=== PATIENT | male | born 1950 | race Caucasian/White ===

== ENCOUNTER 2017-09-17 05:30 | Inpatient (IN) | payer BC ==
[2017-09-17] VITALS (31 sets, daily range): BP systolic 97–131; BP diastolic 49–72; PULSE 62–87; RESP 10–37; Ht 177.8 cm; Wt 81.8 kg
[~2017-09-17] VITALS: Ht 177.8 cm; Wt 81.8 kg
[2017-09-17] MEDS ORDERED: LACTATED RINGER'S 1,000 ML IV* ONE (06:30)
[2017-09-17] MEDS ORDERED: CEFAZOLIN 2 GM/50 ML (PMX) 50 ML IVPB ONE (06:30)
--- NOTE | 2017-09-17 06:57 | HPN ---
Date/Time of Note Date/Time of Note DATE: 09/17/17 TIME: 06:57 Interval H&P Admission Note Pt. seen H&P reviewed: No system changes RYAN VICTRO MD Sep 17, 2017 06:57
--- NOTE | 2017-09-17 06:57 | HPN ---
Date/Time of Note Date/Time of Note DATE: 09/17/17 TIME: 06:57 Interval H&P Admission Note Pt. seen H&P reviewed: No system changes RYAN VICTOR MD Sep 17, 2017 06:57
[2017-09-17] MEDS ORDERED: POLYMYXIN/BACITRACIN 1L IRRIG ONE (06:58)
[2017-09-17] MEDS ORDERED: GELATIN SIZE 100 SPONGE ONE (06:58)
[2017-09-17] MEDS ORDERED: THROMBIN 5000 UNIT VIAL ONE (06:58)
[2017-09-17] MEDS ORDERED: BUPIVACAINE 0.25% (MPF) 30 ML INJ ONE (06:58)
[2017-09-17] MEDS ORDERED: ROCURONIUM 50 MG INJ ONE (07:00)
[2017-09-17] MEDS ORDERED: CEFAZOLIN 1 GM INJ ONE (07:00)
[2017-09-17] MEDS ORDERED: FENTAnyl 50 MCG/ML VIAL ONE (07:05)
[2017-09-17] MEDS ORDERED: LIDOCAINE 2% (SDV) 5 ML INJ ONE (07:05)
[2017-09-17] MEDS ORDERED: SUCCINYLCHOLINE CHLORIDE 100 MG/5 ML SYG IV ONE (07:05)
[2017-09-17] MEDS ORDERED: PROPOFOL 20 ML ONE (07:05)
[2017-09-17] MEDS ORDERED: MIDAZOLAM 1 MG/ML 2 ML INJ ONE (07:06)
[2017-09-17] MEDS ORDERED: EPHEDrine SULFATE 50 MG/5 ML SYG ONE (07:08)
[2017-09-17] MEDS ORDERED: PHENYLephrine (100 MCG/ML) 5ML SYG ONE (07:08)
[2017-09-17] MEDS ORDERED: DRON400T2 PO (07:11)
[2017-09-17] MEDS ORDERED: MET25 PO (07:11)
[2017-09-17] MEDS ORDERED: PRED1TAB2 PO (07:11)
[2017-09-17] MEDS ORDERED: LISI10TA2 PO (07:11)
[2017-09-17] MEDS ORDERED: TRAM-40 PO (07:11)
[2017-09-17] MEDS ORDERED: OMEP10CA4 PO (07:11)
[2017-09-17] MEDS ORDERED: FOLIC (07:11)
[2017-09-17] MEDS ORDERED: RIVA20TA PO (07:11)
[2017-09-17] MEDS ORDERED: ROSU5TAB5 PO (07:11)
[2017-09-17] MEDS ORDERED: OCULAR LUBRICANT 3.5 GM OPH OINT ONE (07:18)
[2017-09-17] MEDS ORDERED: DEXAMETHASONE 4 MG/ML 1 ML INJ ONE (07:44)
[2017-09-17] MEDS ORDERED: METOCLOPRAMIDE 10 MG INJ ONE (07:44)
[2017-09-17] MEDS ORDERED: ONDANSETRON 4 MG INJ ONE (07:44)
[2017-09-17] MEDS ORDERED: HYDROmorphONE 2 MG/ML SYG ONE (08:27)
[2017-09-17] MEDS ORDERED: SUGAMMADEX SODIUM 200 MG/2 ML VIAL IV ONE (08:30)
[2017-09-17] MEDS ORDERED: EPHEDrine SULFATE 50 MG/5 ML SYG IV PRN (08:30)
[2017-09-17] MEDS ORDERED: LABETALOL HCL 20MG INJ IV PRN (08:30)
[2017-09-17] MEDS ORDERED: hydrALAzine 20 MG INJ IV PRN (08:30)
[2017-09-17] MEDS ORDERED: PROCHLORPERAZINE 10 MG INJ IV PRN (08:30)
[2017-09-17] MEDS ORDERED: MEPERIDINE 25 MG INJ IV PRN (08:30)
[2017-09-17] MEDS ORDERED: HYDROmorphONE (0.2 MG/ML) 10ML SYG IV PRN ×2 (08:30)
[2017-09-17] MEDS ORDERED: FENTAnyl 50 MCG/ML VIAL IV PRN (08:30)
[2017-09-17] MEDS ORDERED: ONDANSETRON 4 MG INJ IV PRN ×2 (08:30→09:30)
[2017-09-17] MEDS ORDERED: DIPHENHYDRAMINE 50 MG INJ IV PRN (08:30)
[2017-09-17] MEDS ORDERED: oxyCODONE 5 MG TAB PO PRN (08:30)
[2017-09-17] MEDS ORDERED: ACETAMINOPHEN 1000MG/100ML IV 100 ML ONE (08:30)
[2017-09-17] MEDS ORDERED: PROCHLORPERAZINE 10 MG TAB PO PRN (09:30)
[2017-09-17] MEDS ORDERED: DIAZEPAM 5 MG TAB PO PRN (09:30)
[2017-09-17] MEDS ORDERED: AL HYDROX/MG HYDROX/SIMETH 30 ML CUP PO PRN (09:30)
[2017-09-17] MEDS ORDERED: NALOXONE (0.4 MG/ML) INJ IV PRN (09:30)
[2017-09-17] MEDS ORDERED: ZOLPIDEM 5 MG TAB PO PRN (09:30)
[2017-09-17] MEDS ORDERED: TRIMETHOBENZAMIDE 100 MG/ML VIAL IM PRN (09:30)
[2017-09-17] MEDS ORDERED: ACETAMINOPHEN 325 MG TAB PO PRN (09:30)
[2017-09-17] MEDS ORDERED: DIPHENHYDRAMINE 50 MG CAP PO PRN (09:30)
[2017-09-17] MEDS ORDERED: HYDROmorphONE 0.2 MG/ML PCA IV SCH (09:30)
[2017-09-17] MEDS ORDERED: BETHANECHOL 25 MG TAB PO PRN (09:30)
[2017-09-17] MEDS ORDERED: HYDROCODONE/APAP (5/325) TAB PO PRN (09:30)
[2017-09-17] MEDS ORDERED: DIAZEPAM 5 MG/ML SYG IM PRN (09:30)
[2017-09-17] MEDS ORDERED: NACL 0.9% 3 ML SYG IV SCH (09:30)
[2017-09-17] MEDS ORDERED: HYDROmorphONE 0.2 MG/ML PCA ONE (09:41)
--- NOTE | 2017-09-17 10:34 | OPR ---
DATE OF OPERATION: 09/17/2017 PREOPERATIVE DIAGNOSIS: Severe spinal stenosis at L4-L5. POSTOPERATIVE DIAGNOSIS: Severe spinal stenosis at L4-L5. OPERATION PERFORMED: 1. Central decompressive laminectomy at L4. 2. Partial central decompression laminectomy at L5 (superiorly). 3. Medial facetectomy and foraminotomy, L4-L5 bilaterally. 4. Cosmetic wound closure (5 cm). 5. Lateral localized lumbar radiographs (2). 6. Intraoperative nerve monitoring (90 minutes). SURGEON: Rich Mcdaniel MD ELECTRICAL MAINTENANCE MECHANIC: Gabrielle Conti PA-C ANESTHESIA: General endotracheal. ANESTHESIOLOGIST: Dr. Cam ESTIMATED BLOOD LOSS: 50 mL, none replaced. DRAINS: Two medium Hemovac drains employed. COMPLICATIONS: None. PERTINENT HISTORY AND PHYSICAL: This is a 67-year-old male with severe back and lower extremity com plaints, right greater than left, which have been unrelieved by conservative management. He has und ergone a number of diagnostic studies including an MRI of the lumbar spine, which demonstrated a sev ere stenosis at L4-L5 secondary to degenerative spondylolisthesis at that level and marked facet bebo nt hypertrophy. Treatment options were discussed with the patient, who elected to proceed with surg glenna. OPERATIVE FINDINGS AT SURGERY: Severe stenosis at L4 was confirmed. The baseline intraoperative ne rve monitoring revealed a decrease in the right L3 potential of 30%, the right L4 potential of 50%. These all returned to normal at the completion of surgery. OPERATIVE PROCEDURE: With the patient in supine position after satisfactory induction of general en dotracheal anesthesia by Dr. Cam, the patient was turned to the prone kneeling position on the [facility] frame. All pressure points were carefully padded. The back was prepped and draped in usual st erile fashion. Athrombic pumps were applied to the legs below the knees to prevent venous stasis du ring and after the procedure. An indwelling Barba catheter was also placed preoperatively to facili nelson bladder drainage during and after the procedure. Two spinal needles were placed next to what w as felt to be the L4 and L5 spinous processes, lateral roentgenogram was taken which confirmed anato laurel localization. A 5 cm incision then carried out midline over the spinous process of L4 after skin was infiltrated w ith 0.25% Marcaine without epinephrine for postoperative analgesia. Superficial retractors were wade debi and hemostasis secured with electrocautery. Throughout the procedure, copious amounts of antiba cterial irrigating solution were used to periodically irrigate the wound. The fascia was incised in midline with a hot knife and a bilateral subperiosteal dissection carried out at L4-L5. Deep retra ctors were placed and deep hemostasis secured with electrocautery. A second intraoperative radiogra ph was taken with [place] clamps placed in what was felt to be the spinous process of L4. This was c onfirmed with second x-ray. A central decompressive laminectomy at L4 was then carried out using a Angela right-angle bone jimenez eur, Leksell rongeur, Kerrison punches and curettes. Ligamentum flavum was incised with sharp disse ction. The operating microscope was moved into place. A medial facetectomy and foraminotomy was ac complished using small hand osteotome, mallet, Kerrison punches and curettes. The dural sac and exi ting L5 nerve were still compressed distally, and the superior 20% of the lamina of L5 and the adjac ent facet joints were removed to facilitate adequate decompression of the dural sac and the exiting L5 nerve roots. The anesthesiologist was asked to perform a Valsalva maneuver at 40 mmHg and no spi nal fluid leak was noted. The wound was then closed in layers over 2 medium Hemovac drains, one below the fascia and one above the fascia using #1 Stratafix sutures on the deep paralumbar musculature and deep fascia of back, 2 -0 Stratafix sutures in subcu tissue, and a 4-0 Vicryl subcuticular cosmetic closing suture on the s kin. Dermabond and sterile compressive dressings were applied. Patient having tolerated procedure well, was then turned to the supine position onto his bed and extubated by Dr. Cam. He was transpo rted to recovery room in satisfactory condition. At the conclusion of the procedure, sponge, instru ment, and needle counts were all correct. NEED FOR BENDING MACHINE OPERATOR: During this spinal surgical procedure, my marketing assistant retail division was used to retrac t and protect the spinal nerves and dural sac. My marketing assistant retail division also employed the suction catheters to e vacuate blood from the surgical field to improve visualization of the neural structures. The assista nt was medically necessary to facilitate the completion of the surgery in a safe and expeditious man ner. State of [place] regulations, as well as hospital bylaws, preclude the use of non-licensed [facility] care personnel such as operating room technicians, to perform these functions. Throughout the procedure, neural monitoring was carried out by [employer] including EMG, SSEP and MEP monitoring of the L3, L4, L5 and S1 nerve roots bilaterally along with s lilliam cord potentials. These were interpreted by a neurologist employed by [employer]. Dictated By: RICH MCDANIEL MD TM/NTS Conf#: [id number] DID#: [id number] CC: DESHAWN PATEL MD;*EndCC*
--- NOTE | 2017-09-17 10:34 | OPR ---
DATE OF OPERATION: 09/17/2017 PREOPERATIVE DIAGNOSIS: Severe spinal stenosis at L4-L5. POSTOPERATIVE DIAGNOSIS: Severe spinal stenosis at L4-L5. OPERATION PERFORMED: 1. Central decompressive laminectomy at L4. 2. Partial central decompression laminectomy at L5 (superiorly). 3. Medial facetectomy and foraminotomy, L4-L5 bilaterally. 4. Cosmetic wound closure (5 cm). 5. Lateral localized lumbar radiographs (2). 6. Intraoperative nerve monitoring (90 minutes). SURGEON: Rich Mcdaniel MD MEDICINAL PLANT PICKER: Gabrielle Conti PA-C ANESTHESIA: General endotracheal. ANESTHESIOLOGIST: Dr. Cam ESTIMATED BLOOD LOSS: 50 mL, none replaced. DRAINS: Two medium Hemovac drains employed. COMPLICATIONS: None. PERTINENT HISTORY AND PHYSICAL: This is a 67-year-old male with severe back and lower extremity com plaints, right greater than left, which have been unrelieved by conservative management. He has und ergone a number of diagnostic studies including an MRI of the lumbar spine, which demonstrated a sev ere stenosis at L4-L5 secondary to degenerative spondylolisthesis at that level and marked facet bebo nt hypertrophy. Treatment options were discussed with the patient, who elected to proceed with surg glenna. OPERATIVE FINDINGS AT SURGERY: Severe stenosis at L4 was confirmed. The baseline intraoperative ne rve monitoring revealed a decrease in the right L3 potential of 30%, the right L4 potential of 50%. These all returned to normal at the completion of surgery. OPERATIVE PROCEDURE: With the patient in supine position after satisfactory induction of general en dotracheal anesthesia by Dr. Cam, the patient was turned to the prone kneeling position on the [facility] frame. All pressure points were carefully padded. The back was prepped and draped in usual st erile fashion. Athrombic pumps were applied to the legs below the knees to prevent venous stasis du ring and after the procedure. An indwelling Barba catheter was also placed preoperatively to facili nelson bladder drainage during and after the procedure. Two spinal needles were placed next to what w as felt to be the L4 and L5 spinous processes, lateral roentgenogram was taken which confirmed anato laurel localization. A 5 cm incision then carried out midline over the spinous process of L4 after skin was infiltrated w ith 0.25% Marcaine without epinephrine for postoperative analgesia. Superficial retractors were wade debi and hemostasis secured with electrocautery. Throughout the procedure, copious amounts of antiba cterial irrigating solution were used to periodically irrigate the wound. The fascia was incised in midline with a hot knife and a bilateral subperiosteal dissection carried out at L4-L5. Deep retra ctors were placed and deep hemostasis secured with electrocautery. A second intraoperative radiogra ph was taken with [place] clamps placed in what was felt to be the spinous process of L4. This was c onfirmed with second x-ray. A central decompressive laminectomy at L4 was then carried out using a Angela right-angle bone jimenez eur, Leksell rongeur, Kerrison punches and curettes. Ligamentum flavum was incised with sharp disse ction. The operating microscope was moved into place. A medial facetectomy and foraminotomy was ac complished using small hand osteotome, mallet, Kerrison punches and curettes. The dural sac and exi ting L5 nerve were still compressed distally, and the superior 20% of the lamina of L5 and the adjac ent facet joints were removed to facilitate adequate decompression of the dural sac and the exiting L5 nerve roots. The anesthesiologist was asked to perform a Valsalva maneuver at 40 mmHg and no spi nal fluid leak was noted. The wound was then closed in layers over 2 medium Hemovac drains, one below the fascia and one above the fascia using #1 Stratafix sutures on the deep paralumbar musculature and deep fascia of back, 2 -0 Stratafix sutures in subcu tissue, and a 4-0 Vicryl subcuticular cosmetic closing suture on the s kin. Dermabond and sterile compressive dressings were applied. Patient having tolerated procedure well, was then turned to the supine position onto his bed and extubated by Dr. Cam. He was transpo rted to recovery room in satisfactory condition. At the conclusion of the procedure, sponge, instru ment, and needle counts were all correct. NEED FOR DIGITAL FIELD SERVICE TECHNICIAN: During this spinal surgical procedure, my public services assistant was used to retrac t and protect the spinal nerves and dural sac. My public services assistant also employed the suction catheters to e vacuate blood from the surgical field to improve visualization of the neural structures. The assista nt was medically necessary to facilitate the completion of the surgery in a safe and expeditious man ner. State of [place] regulations, as well as hospital bylaws, preclude the use of non-licensed [facility] care personnel such as operating room technicians, to perform these functions. Throughout the procedure, neural monitoring was carried out by [employer] including EMG, SSEP and MEP monitoring of the L3, L4, L5 and S1 nerve roots bilaterally along with s lilliam cord potentials. These were interpreted by a neurologist employed by [employer]. Dictated By: RICH MCDANIEL MD TM/NTS Conf#: [id number] DID#: [id number] CC: DESHAWN PATEL MD;*EndCC*
--- NOTE | 2017-09-17 10:34 | OPR ---
DATE OF OPERATION: 09/17/2017 PREOPERATIVE DIAGNOSIS: Severe spinal stenosis at L4-L5. POSTOPERATIVE DIAGNOSIS: Severe spinal stenosis at L4-L5. OPERATION PERFORMED: 1. Central decompressive laminectomy at L4. 2. Partial central decompression laminectomy at L5 (superiorly). 3. Medial facetectomy and foraminotomy, L4-L5 bilaterally. 4. Cosmetic wound closure (5 cm). 5. Lateral localized lumbar radiographs (2). 6. Intraoperative nerve monitoring (90 minutes). SURGEON: Rich Mcdaniel MD WINDOW GLAZIER: Gabrielle Conti PA-C ANESTHESIA: General endotracheal. ANESTHESIOLOGIST: Dr. Cam ESTIMATED BLOOD LOSS: 50 mL, none replaced. DRAINS: Two medium Hemovac drains employed. COMPLICATIONS: None. PERTINENT HISTORY AND PHYSICAL: This is a 67-year-old male with severe back and lower extremity com plaints, right greater than left, which have been unrelieved by conservative management. He has und ergone a number of diagnostic studies including an MRI of the lumbar spine, which demonstrated a sev ere stenosis at L4-L5 secondary to degenerative spondylolisthesis at that level and marked facet bebo nt hypertrophy. Treatment options were discussed with the patient, who elected to proceed with surg glenna. OPERATIVE FINDINGS AT SURGERY: Severe stenosis at L4 was confirmed. The baseline intraoperative ne rve monitoring revealed a decrease in the right L3 potential of 30%, the right L4 potential of 50%. These all returned to normal at the completion of surgery. OPERATIVE PROCEDURE: With the patient in supine position after satisfactory induction of general en dotracheal anesthesia by Dr. Cam, the patient was turned to the prone kneeling position on the [facility] frame. All pressure points were carefully padded. The back was prepped and draped in usual st erile fashion. Athrombic pumps were applied to the legs below the knees to prevent venous stasis du ring and after the procedure. An indwelling Barba catheter was also placed preoperatively to facili nelson bladder drainage during and after the procedure. Two spinal needles were placed next to what w as felt to be the L4 and L5 spinous processes, lateral roentgenogram was taken which confirmed anato laurel localization. A 5 cm incision then carried out midline over the spinous process of L4 after skin was infiltrated w ith 0.25% Marcaine without epinephrine for postoperative analgesia. Superficial retractors were wade debi and hemostasis secured with electrocautery. Throughout the procedure, copious amounts of antiba cterial irrigating solution were used to periodically irrigate the wound. The fascia was incised in midline with a hot knife and a bilateral subperiosteal dissection carried out at L4-L5. Deep retra ctors were placed and deep hemostasis secured with electrocautery. A second intraoperative radiogra ph was taken with [place] clamps placed in what was felt to be the spinous process of L4. This was c onfirmed with second x-ray. A central decompressive laminectomy at L4 was then carried out using a Angela right-angle bone jimenez eur, Leksell rongeur, Kerrison punches and curettes. Ligamentum flavum was incised with sharp disse ction. The operating microscope was moved into place. A medial facetectomy and foraminotomy was ac complished using small hand osteotome, mallet, Kerrison punches and curettes. The dural sac and exi ting L5 nerve were still compressed distally, and the superior 20% of the lamina of L5 and the adjac ent facet joints were removed to facilitate adequate decompression of the dural sac and the exiting L5 nerve roots. The anesthesiologist was asked to perform a Valsalva maneuver at 40 mmHg and no spi nal fluid leak was noted. The wound was then closed in layers over 2 medium Hemovac drains, one below the fascia and one above the fascia using #1 Stratafix sutures on the deep paralumbar musculature and deep fascia of back, 2 -0 Stratafix sutures in subcu tissue, and a 4-0 Vicryl subcuticular cosmetic closing suture on the s kin. Dermabond and sterile compressive dressings were applied. Patient having tolerated procedure well, was then turned to the supine position onto his bed and extubated by Dr. Cam. He was transpo rted to recovery room in satisfactory condition. At the conclusion of the procedure, sponge, instru ment, and needle counts were all correct. NEED FOR DULL COAT MILL OPERATOR: During this spinal surgical procedure, my assistant passenger locomotive engineer was used to retrac t and protect the spinal nerves and dural sac. My assistant passenger locomotive engineer also employed the suction catheters to e vacuate blood from the surgical field to improve visualization of the neural structures. The assista nt was medically necessary to facilitate the completion of the surgery in a safe and expeditious man ner. State of [place] regulations, as well as hospital bylaws, preclude the use of non-licensed [facility] care personnel such as operating room technicians, to perform these functions. Throughout the procedure, neural monitoring was carried out by [employer] including EMG, SSEP and MEP monitoring of the L3, L4, L5 and S1 nerve roots bilaterally along with s lilliam cord potentials. These were interpreted by a neurologist employed by [employer]. Dictated By: RICH MCDANIEL MD TM/NTS Conf#: [id number] DID#: [id number] CC: DESHAWN PATEL MD;*EndCC*
--- NOTE | 2017-09-17 10:53 | RADRPT ---
PROCEDURE: Intraoperative XR. CLINICAL INDICATION: Intraoperative radiograph during lumbar spine surgery. TECHNIQUE: Spot intraoperative lateral lumbar x-ray image was provided. The images were reviewed on a high-resolution PACS workstation. COMPARISON: None available FINDINGS: Spot intraoperative lateral all lumbar view were provided during lumbar spine surgery. The images d emonstrate metallic probes at the L3 and L3-4 levels. There is 5 mm of anterolisthesis of L4 on L5. IMPRESSION: 1. Spot intraoperative lateral lumbar view during lumbar spine surgery were provided. 2. Please see operative report of the same day for further information. RPTAT: HGAS .Geronimo Donohue MD, MD Date Time Electronically viewed and signed by .Geronimo Donohue MD, on 09/17/2017 10:53 .S/
--- NOTE | 2017-09-17 10:54 | RADRPT ---
PROCEDURE: Intraoperative XR. CLINICAL INDICATION: Intraoperative radiograph during lumbar spine surgery. TECHNIQUE: Spot intraoperative lateral lumbar x-ray image was provided. The images were reviewed on a high-resolution PACS workstation. COMPARISON: 09/17/2017 FINDINGS: Spot intraoperative lateral lumbar view were provided during lumbar spine surgery. The images demon strate metallic instrumentation at the L4-5 level. There is 5 mm of anterolisthesis of L4 on L5. IMPRESSION: 1. Spot intraoperative lateral lumbar view during lumbar spine surgery were provided. 2. Please see operative report of the same day for further information. RPTAT: HGAS .Geronimo Donohue MD, MD Date Time Electronically viewed and signed by .Geronimo Donohue MD, on 09/17/2017 10:53 .S/
[2017-09-17] MEDS: CEFAZOLIN 1 GM/50 ML (PMX) 50 ML IVPB SCH ×3 (12:01→23:01)
[2017-09-17] MEDS: DEXTROSE 5%-0.45% NACL 1,000 ML IV SCH ×2 (12:01→21:12)
[2017-09-17] MEDS: CEPASTAT LOZENGE MT PRN ×2 (12:59→19:14)
--- NOTE | 2017-09-17 18:12 | CONS ---
Date/Time of Note Date/Time of Note DATE: 09/17/17 TIME: 18:00 Assessment/Plan Assessment/Plan Problems: (1) Aftercare following surgery of the musculoskeletal system Status: Acute Comment: Doing well on postop day #0. Pain controlled. Patient to start with physical therapy tomorrow. Will follow and evaluate for any medical issues should they arise. (2) Spinal stenosis of lumbar region with radiculopathy Status: Resolved Comment: Per primary team (3) Rheumatoid arthritis Status: Chronic Comment: Continue prednisone. Continue methotrexate. (4) Atherosclerotic heart disease of [place] coronary artery without angina pectoris Status: Chronic Comment: Patient is status post coronary bypass grafting. Will monitor. (5) Atrial fibrillation Status: Chronic Comment: Patient to continue on Multitaq. Xarelto to be held until 5 days postoperatively. (6) Gastro-esophageal reflux disease without esophagitis Status: Chronic Comment: Change PPI from omeprazole to pantoprazole for formulary reasons (7) Essential (primary) hypertension Status: Chronic Comment: Continue lisinopril (8) Hyperlipidemia Status: Chronic Comment: Patient does not want to be on atorvastatin. Okay to continue his home dose of Crestor. Consultation Date/Type/Reason Admit Date/Time Sep 17, 2017 at 05:30 Date of Consultation: Sep 17, 2017 Type of Consultation: Medicine Reason for Consultation Medical management Referring Provider: RYAN VICTOR MD Hx of Present Illness 67-year-old male with a history of rheumatoid arthritis, hypertension, hyperlipidemia, coronary artery disease, gastroesophageal reflux disease, atrial fibrillation who presented with severe back and lower extremity complaints, right greater than left, which have been unrelieved by conservative management. He has undergone a number of diagnostic studies including an MRI of the lumbar spine, which demonstrated a severe stenosis at L4-L5 secondary to degenerative spondylolisthesis at that level and marked facet joint hypertrophy. Treatment options were discussed with the patient, who elected to proceed with surgery. Now status post lumbar laminectomy at L4-L5. Postop day #0. "Feels like 1 million bucks" Constitutional: improved, no complaints Eyes: no complaints ENT: no complaints Respiratory: no complaints Cardiovascular: no complaints Gastrointestinal: no complaints Genitourinary: no complaints Musculoskeletal: no complaints Neurologic: no complaints (Marked improvement in lower extremity sensation) Past Medical History Medical History: coronary artery disease, GERD, high cholesterol, hypertension , other (Rheumatoid arthritis, atrial fibrillation) Past Surgical History Past Surgical Hx: coronary bypass surgery, other (Bilateral hernia surgery, left knee meniscus repair, reentry pathway ablation) Family History Significant Family History: heart disease (Mother's family), hypertension ( Mother) Social History Born [place], in [facility] for 50 years, 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 [employer], , 3 children, one Alcohol Use: sober (Formerly heavy drinker, sober for 18 years) Smoking Status: Former smoker (1 pack per day for 25 years, quit 25 years ago) Drug Use: none Exam/Review of Systems Vital Signs Vitals VS - Last 72 Hours, by Label Date Time Temp Pulse Resp B/P Pulse Ox O2 Delivery O2 Flow Rate FiO2 09/17/17 17:00 78 13 117/68 99 Room Air Mechanical Ventilator 09/17/17 16:00 74 09/17/17 16:00 98.1 78 12 120/62 98 Room Air Mechanical Ventilator 09/17/17 15:00 78 21 106/58 100 Room Air 09/17/17 14:00 81 15 108/63 98 Room Air 09/17/17 13:00 87 16 97/51 98 Room Air 09/17/17 12:30 84 17 117/63 99 Room Air 09/17/17 12:15 80 21 125/71 98 Room Air 09/17/17 12:00 76 15 125/67 99 Room Air 09/17/17 12:00 76 09/17/17 11:30 78 22 120/64 98 Room Air 09/17/17 11:15 75 15 119/57 100 Room Air 09/17/17 11:00 97.6 72 17 119/54 92 Room Air 09/17/17 10:49 69 09/17/17 10:20 70 25 128/54 98 Room Air 09/17/17 10:10 64 21 116/58 100 Room Air 09/17/17 10:00 68 37 121/52 100 Room Air 09/17/17 09:55 66 16 123/62 100 Room Air 09/17/17 09:50 62 24 118/59 100 Room Air 09/17/17 09:45 62 20 126/53 100 Room Air 09/17/17 09:34 66 20 114/52 100 Room Air 09/17/17 09:29 66 17 113/59 100 Room Air 09/17/17 09:24 66 10 107/57 100 Room Air 09/17/17 09:19 70 12 102/49 100 Room Air 09/17/17 09:18 97.8 09/17/17 09:14 70 19 125/55 100 Nasal Cannula 2.0 09/17/17 09:09 97.8 72 18 116/54 100 Mask 8.0 09/17/17 06:24 98.1 65 18 113/63 99 Room Air Vital Signs Date Time Temp Pulse Resp B/P Pulse Ox O2 Delivery O2 Flow Rate FiO2 09/17/17 17:00 78 13 117/68 99 Room Air Mechanical Ventilator 09/17/17 16:00 98.1 09/17/17 09:14 2.0 Exam Constitutional: alert, oriented, well developed Psych: nl mood/affect, no complaints Eyes: EOMI, PERRL, nl conjunctiva, nl lids, nl sclera ENMT: mucosa pink and moist, nl external ears & nose Neck: non-tender, supple, No bruits, No masses, No thyromegaly Respiratory: clear to auscultation, normal air movement Cardiovascular: nl pulses, regular rate and rhythm, No edema, No murmurs/extra sounds, No rub Gastrointestinal: bowel sounds, nl liver, spleen, non-tender, soft, No mass, No rebound or guarding Musculoskeletal: nl extremities to inspection Extremities: normal pulses Neurological: LINEN ROOM SUPERVISOR II-XII intact, nl mental status, nl speech, nl strength Results Results 24 hrs Laboratory Tests Test 09/17/17 05:34 Prothrombin Time 12.8 Prothrombin Time Ratio 1.0 INR International Normalized Ratio 0.96 Activated Partial Thromboplast Time 25.8 Medications Medications Current Medications Lactated Ringer's 1,000 ml @ 20 mls/hr Q24H ONCE IV* Last administered on 06:50; Admin Dose 20 MLS/HR; Start 09/17/17 at 06:30; Stop 09/18/17 at 06:29 Dextrose/Sodium Chloride (D5-1/2ns) 1,000 ml @ 100 mls/hr Q10H IV Last administered on 09/17/17 12:01; Admin Dose 100 MLS/HR; Start 09/17/17 at 09: 28 Acetaminophen/ Hydrocodone Bitart ([place] (5/325)) 1 tab Q4H PRN PO PAIN LEVEL 1 -5; Start 09/17/17 at 09:30; Status Future Hold Acetaminophen/ Hydrocodone Bitart 2 tab 2 tab Q4H PRN PO PAIN LEVEL 6-10; Start 09/17/17 at 09:30; Status Future Hold Cefazolin Sodium (Ancef 1 Gm/50 ml (Pmx)) 50 ml @ 100 mls/hr Q6 IVPB Last administered on 09/17/17t 17:11; Admin Dose 100 MLS/HR; Start 09/17/17 at 12: 00; Stop 09/18/17 at 06:29 Zolpidem Tartrate (Ambien) 5 mg HS PRN PO INSOMNIA; Start 09/17/17 at 09:30 Prochlorperazine (Compazine) 10 mg Q4H PRN PO NAUSEA AND/OR VOMITING; Start at 09:30 Trimethobenzamide HCl (Tigan) 200 mg Q4H PRN IM NAUSEA AND/OR VOMITING; Start 09/17/17 at 09:30 Ondansetron HCl (Zofran Inj) 4 mg Q6H PRN IV NAUSEA AND/OR VOMITING; Start at 09:30 Al Hydrox/Mg Hydrox/Simethicone (Mag-Al Plus) 15 ml Q4H PRN PO CONSTIPATION; Start 09/17/17 at 09:30 Docusate Sodium (Colace) 100 mg BID PO ; Start 09/18/17 at 09:00 Acetaminophen (Tylenol Tab) 650 mg Q4H PRN PO TEMP GREATER THAN 101F OR SALGUERO; Start 09/17/17 at 09:30 Ascorbic Acid (Vitamin C) 1,000 mg BID PO ; Start 09/18/17 at 09:00 Ferrous Sulfate (Ferrous Sulfate (Ec)) 325 mg TID PO ; Start 09/18/17 at 09:00 Ranitidine HCl (Zantac) 150 mg BID PO ; Start 09/17/17 at 21:00 Diazepam (Valium) 5 mg Q4H PRN PO MUSCLE SPASMS; Start 09/17/17 at 09:30 Diazepam (Valium) 5 mg Q4H PRN IM MUSCLE SPASMS; Start 09/17/17 at 09:30 Phenol (Cepastat Lozenge) 1 lozenge PRN PRN MT SORE THROAT Last administered on 09/17/17t 12:59; Admin Dose 1 LOZENGE; Start 09/17/17 at 09:30 Bethanechol Chloride (Urecholine) 25 mg PRN PRN PO UNABLE TO VOID; Start 09/17 at 09:30 Diphenhydramine HCl (Benadryl) 50 mg Q6H PRN PO PRURITUS; Start 09/17/17 at 09 :30 Hydromorphone HCl (Dilaudid CONSUMER SALES REPRESENTATIVE) Q4PCA IV ; Start 09/17/17 at 09:30 Naloxone HCl (Narcan) 0.2 mg Q2M PRN IV RR 8 BREATHS/MIN OR LESS; Start at 09:30 Dronedarone (Multaq) 400 mg BID PO ; Start 09/17/17 at 21:00 Lisinopril (Zestril) 10 mg DAILY PO ; Start 09/18/17 at 09:00 Methotrexate (Methotrexate) 15 mg Love@09 PO ; Start 09/23/17 at 09:00 Prednisone (Prednisone) 2 mg DAILY PO ; Start 09/18/17 at 09:00 Pantoprazole (Protonix Tab) 40 mg DAILY@06 PO ; Start 09/18/17 at 06:00 Atorvastatin Calcium (Lipitor) 10 mg HS PO ; Start 09/17/17 at 21:00 DESHAWN PATEL MD Sep 17, 2017 18:12
[2017-09-17] MEDS ORDERED: ATORVASTATIN 10 MG TAB PO SCH (21:00)
[2017-09-17] MEDS: RANITIDINE 150 MG TAB PO SCH (21:12)
[2017-09-17] MEDS: DRONEDARONE HYDROCHLORIDE 400 MG TAB PO SCH (21:12)
[2017-09-18] VITALS (13 sets, daily range): BP systolic 95–137; BP diastolic 50–81; PULSE 68–85; RESP 13–19
[2017-09-18] MEDS ORDERED: PANTOPRAZOLE (EC) 40 MG TAB PO SCH (06:00)
[2017-09-18] MEDS ORDERED: HYDROCODONE/APAP (5/325) TAB ONE (06:23)
[2017-09-18] MEDS: CEFAZOLIN 1 GM/50 ML (PMX) 50 ML IVPB SCH (06:25)
[2017-09-18] MEDS: DEXTROSE 5%-0.45% NACL 1,000 ML IV SCH (06:25)
[2017-09-18] MEDS: HYDROCODONE/APAP (5/325) TAB PO PRN ×2 (06:33→10:46)
--- NOTE | 2017-09-18 07:06 | PN ---
Date/Time of Note Date/Time of Note DATE: 09/18/17 TIME: 07:04 Assessment/Plan Lines/Catheters IV Catheter Type (from Nrs): Peripheral IV Barba in Place (from Nrs): Yes Subjective 24 Hr Interval Summary The patient is postop day #1 following a decompressive laminectomy at L4 and the upper part of L5. He is resting comfortably in bed. Neurovascular structures are intact distally. His a.m. labs are unremarkable. He had 100 cc in his Hemovac at 7 PM last night and 60 cc since that time. He has a Barba catheter in place. I will order his Barba to be discontinued, and he can be transferred to the orthopedic floor if cleared by internal medicine. He will be mobilized as tolerated by physical therapy until he is independent with ambulation. He may be able to go home later today if cleared by physical therapy. Exam/Review of Systems Vital Signs Vitals Vital Signs Date Time Temp Pulse Resp B/P Pulse Ox O2 Delivery O2 Flow Rate FiO2 09/18/17 06:00 68 18 101/54 98 Room Air 09/18/17 04:00 97.7 09/17/17 09:14 2.0 Intake and Output 09/17/17 09/17/17 09/18/17 15:00 23:00 07:00 Intake Total 2030 ml 1440 ml 870 ml Output Total 1600 ml 1125 ml 1210 ml Balance 430 ml 315 ml -340 ml Results Result Diagram: 09/18/17 0441 09/18/17 0441 RYAN VICTOR MD Sep 18, 2017 07:06
[2017-09-18] MEDS ORDERED: BETHANECHOL 25 MG TAB PO PRN (08:00)
[2017-09-18] MEDS: RANITIDINE 150 MG TAB PO SCH (08:14)
[2017-09-18] MEDS: FERROUS SULFATE (EC) 325 MG TAB PO SCH ×2 (08:14→14:01)
[2017-09-18] MEDS: DRONEDARONE HYDROCHLORIDE 400 MG TAB PO SCH (08:15)
[2017-09-18] MEDS ORDERED: SPECIAL NON-STANDARD MEDICATION PO SCH (09:00)
[2017-09-18] MEDS ORDERED: predniSONE 1 MG TAB PO SCH (09:00)
[2017-09-18] MEDS ORDERED: DOCUSATE SODIUM 100 MG CAP PO SCH (09:00)
[2017-09-18] MEDS ORDERED: ASCORBIC ACID 500 MG TAB PO SCH (09:00)
[2017-09-18] MEDS ORDERED: LISINOPRIL 10 MG TAB PO SCH (09:00)
[2017-09-18] MEDS ORDERED: RIVAROXABAN 20 MG TABLET PO SCH (17:35)
[2017-09-23] MEDS ORDERED: METHOTREXATE 2.5 MG TAB PO SCH (09:00)
--- NOTE | 2017-09-24 11:45 | DS ---
Date/Time of Note Date/Time of Note DATE: 09/24/17 TIME: 11:43 Discharge Summary Admission/Discharge Info Admit Date/Time Sep 17, 2017 at 05:30 Discharge Date/Time Sep 18, 2017 at 15:08 Discharge Diagnosis Severe spinal stenosis at L4-L5. Patient Condition: Good Hospital Course Pt did well post-op following lumbar decompression. His pain was well controlled. Diet and activity were advanced as tolerated. He was discharged home in good condition on postop day #1. Home Meds Reported Medications Rivaroxaban* (Xarelto*) 20 Mg Tablet, 20 MG PO WITH DINNER, TAB 09/17/17 Tramadol Hcl* (Ultram*) 50 Mg Tablet, 50 MG PO Q6H Y for PAIN, TAB 09/17/17 Prednisone* (Prednisone*) 1 Mg Tablet, 2 MG PO DAILY, TAB 09/17/17 Omeprazole* (Omeprazole*) 10 Mg Capsule.dr, 10 MG PO DAILY, #30 CAP 09/17/17 Dronedarone Hydrochloride* (Multaq*) 400 Mg Tablet, 400 MG PO BID, TAB 09/17/17 Methotrexate* (Methotrexate*) 2.5 Mg Tab, 15 MG PO, TAB 09/17/17 Lisinopril* (Lisinopril*) 10 Mg Tablet, 10 MG PO DAILY, #30 TAB 09/17/17 [Folic] No Conflict Check 09/17/17 Rosuvastatin Calcium* (Crestor*) 5 Mg Tablet, 5 MG PO QHS, #30 TAB 09/17/17 Follow-up Plan Follow up with Dr. Mcdaniel in 1-2 weeks. Primary Care Provider Not On Staff Doctor GORDO KEATING Sep 24, 2017 11:45
== END 2017-09-18 15:08 | disposition home or self-care (01) | DRG 517 ==
LOC: REC 05:30 → ICU 10:55 → MS1 09-18 12:38
PROVIDERS: ADMIT Orthopaedic Surgery; ATTEND Orthopaedic Surgery
PROC: 01NB0ZZ Release Lumbar Nerve, Open Approach (ICD-10-PCS; principal; 2017-09-17 07:00)
DX: M48.061 Spinal stenosis, lumbar region without neurogenic claudication (principal); I48.91 Unspecified atrial fibrillation; I10 Essential (primary) hypertension; K21.9 Gastro-esophageal reflux disease without esophagitis; M06.9 Rheumatoid arthritis, unspecified; M43.16 Spondylolisthesis, lumbar region; Z87.891 Personal history of nicotine dependence; Z79.52 Long term (current) use of systemic steroids; E78.5 Hyperlipidemia, unspecified; I25.10 Atherosclerotic heart disease of native coronary artery without angina pectoris; Z79.01 Long term (current) use of anticoagulants
CPT/HCPCS: 72020; 80048; 85014; 85018; 85610; 85730; 86850; 86900; 86901; 86920; 87081; 87086; 97116; 97162; 97530; J0131; J0690; J1100; J1170; J2250; J2370; J2405; J2765; J3010; J7042; J7120; J7512